=== PATIENT | male | born 1950 | race Caucasian/White ===

== ENCOUNTER 2018-06-12 07:57 | Day surgery (SDC) | payer MEDICARE, MEDICAID ==
[2018-06-06 09:29] VITALS: BMI 38.5
[2018-06-12] MEDS ORDERED: Propofol 10 mg/ml Inj (20 ML) ONE ×2 (09:04→09:39)
[2018-06-12] MEDS ORDERED: Sodium Chloride 0.9% 1,000 ML IV SCH (10:00)
[2018-06-12 10:45] VITALS: BP 128/86; PULSE 71; RESP 18; TEMP 97.8; O2SAT 99
== END 2018-06-12 11:11 | disposition home or self-care (01) ==
LOC: ENDO 07:57
PROVIDERS: ATTEND Internal Medicine Gastroenterology
DX: K25.9 Gastric ulcer, unspecified as acute or chronic, without hemorrhage or perforation (principal); K44.9 Diaphragmatic hernia without obstruction or gangrene; K57.30 Diverticulosis of large intestine without perforation or abscess without bleeding; R15.9 Full incontinence of feces; K29.50 Unspecified chronic gastritis without bleeding; Z90.49 Acquired absence of other specified parts of digestive tract; I10 Essential (primary) hypertension; E11.9 Type 2 diabetes mellitus without complications; E78.00 Pure hypercholesterolemia, unspecified; K65.4 Sclerosing mesenteritis; Z96.653 Presence of artificial knee joint, bilateral; Z80.0 Family history of malignant neoplasm of digestive organs